=== PATIENT | female | born 1935 | race Caucasian/White ===

== ENCOUNTER 2017-07-14 13:33 | Inpatient (IN) | payer OTHER, MEDICARE ==
[~2017-07-14] VITALS: Ht 149.9 cm; Wt 98.2 kg
[2017-07-14 01:01] VITALS: BP 111/55
[2017-07-14 15:09] LABS: HEMATOCRIT 41.4 % (36.0-46.0); MCH 31.7 PG (29.0-34.0); MCV 90.6 FL (83-99); MEAN PLAT.VOLUME 11.7 uM^3 (9.5-12.4); PLATELET COUNT 160 K/uL (156-360); RED BLOOD COUNT 4.57 M/uL (3.80-5.20); WHITE BLOOD COUNT 7.1 K/uL (4.1-10.2)
[2017-07-14 15:16] LABS: CHLORIDE 98 mEq/L (99-109); POTASSIUM 4.7 mEq/L (3.7-5.4); SODIUM 129 mEq/L (136-147)
[2017-07-14 15:18] LABS: GLUCOSE 148 mg/dL (70-99)
[2017-07-14 15:20] LABS: ANION GAP 13 MEQ/L (2-14)
[2017-07-14 15:22] LABS: GFR ESTIMATE (CALCULATED) 33 mL/min/
[2017-07-14 15:23] LABS: UREA NITROGEN (BUN) 64 mg/dL (9-23)
[2017-07-14 15:29] LABS: TROP-I INTERPRETATION NEGATIVE; TROPONIN-I 0.03 ng/mL (0.0-0.30)
[2017-07-14] MEDS ORDERED: FUROSEMIDE20 MG PO (16:35)
[2017-07-14] MEDS ORDERED: NORCO 5/3251 TABLET PO (16:36)
[2017-07-14] MEDS ORDERED: ZOFRAN4 MG PO (16:36)
[2017-07-14] MEDS ORDERED: SSD25GM TP (16:36)
[2017-07-14] MEDS ORDERED: ULORIC40 MG PO (16:37)
[2017-07-14] MEDS ORDERED: ZOCOR40 MG PO (16:37)
[2017-07-14] MEDS ORDERED: VOLTAREN-XR100 MG PO (16:37)
[2017-07-14] MEDS ORDERED: PRINIVIL5 MG PO (16:37)
[2017-07-14] MEDS ORDERED: ASMANEX TW200 MICRO1 IH (16:38)
[2017-07-14] MEDS ORDERED: ALDACTONE25 MG PO (16:38)
[2017-07-14] MEDS ORDERED: VENTOLIN HFA18 GM IH (16:38)
[2017-07-14] MEDS ORDERED: CORTIZONE-1057 GM TP (16:39)
[2017-07-14 16:50] LABS: INTER. NORMALIZED RATIO 1.1; PROTHROMBIN TIME 12.6 SEC (10.2-12.9)
[2017-07-14 16:53] LABS: PTT 27.9 SEC (25-37)
[2017-07-14 18:15] LABS: CHLORIDE 101 mEq/L (99-109); POTASSIUM 4.1 mEq/L (3.7-5.4); SODIUM 128 mEq/L (136-147)
[2017-07-14 18:16] LABS: GLUCOSE 135 mg/dL (70-99)
[2017-07-14 18:18] LABS: ANION GAP 13 MEQ/L (2-14)
[2017-07-14 18:20] LABS: GFR ESTIMATE (CALCULATED) 38 mL/min/
[2017-07-14 18:21] LABS: UREA NITROGEN (BUN) 63 mg/dL (9-23)
[2017-07-14 18:25] LABS: TROP-I INTERPRETATION NEGATIVE; TROPONIN-I 0.06 ng/mL (0.0-0.30)
[2017-07-14 19:36] LABS: ADD MIUA? YES; BILIRUBIN NEGATIVE; BLOOD NEGATIVE; COLOR AMBER ((YELLOW)); GLUCOSE (STRIP) 50; KETONES 5; LEUKOCYTES LARGE; NITRITE NEGATIVE; PROTEIN (STRIP) 30; SPECIFIC GRAVITY 1.024 (1.000-1.030); UROBILINOGEN 0.2 MG/DL (0.2-1.0)
[2017-07-14 19:55] VITALS: BP 93/61
[2017-07-14 20:00] VITALS: BP 100/60
[2017-07-14 20:04] LABS: BACTERIA 3+ /HPF; CASTS PRESENT /LPF; CRYSTALS NONE SEEN; EPITHELIAL CELLS 3+ /HPF; MUCUS NONE SEEN /LPF; RED BLOOD CELLS 0-5 /HPF (0-5); UCUL ADDED? YES; WHITE BLOOD CELLS TNTC /HPF (0-5)
[2017-07-14 20:05] LABS: HYALINE CASTS 0-5 /LPF
[2017-07-14 22:17] LABS: TROP-I INTERPRETATION NEGATIVE; TROPONIN-I 0.08 ng/mL (0.0-0.30)
[2017-07-15] VITALS (7 sets, daily range): BP systolic 88–134; BP diastolic 54–91
[2017-07-15 05:27] LABS: HEMATOCRIT 41.6 % (36.0-46.0); MCH 30.6 PG (29.0-34.0); MCHC 33.7 G/DL (30.0-36.0); NRBC (%) 0.2 /100 WBC (0-0); PLATELET COUNT 160 K/uL (156-360); RBC DIS.WIDTH-CV 13.1 % (11.8-14.6); RED BLOOD COUNT 4.57 M/uL (3.80-5.20); WHITE BLOOD COUNT 8.2 K/uL (4.1-10.2)
[2017-07-15 05:55] LABS: ALKALINE PHOSPHATASE 102 IU/L (3-129); ANION GAP 8 MEQ/L (2-14); CHLORIDE 100 MEQ/L (99-109); GFR ESTIMATE (CALCULATED) 45 mL/min/; GLUCOSE 110 mg/dL (70-99); POTASSIUM 4.3 MEQ/L (3.7-5.4); SAMPLE HEMOLYSIS CHECK 0; SAMPLE ICTERIC CHECK 0; SAMPLE LIPEMIA CHECK 0; SODIUM 128 MEQ/L (136-147); TOTAL BILIRUBIN 0.9 MG/DL (0.0-1.0); UREA NITROGEN (BUN) 56 mg/dL (9-23)
[2017-07-15 06:02] LABS: ABS NEUTROPHIL COUNT 5.3; ANISOCYTOSIS 1+; ATYPICAL LYMPHOCYTE 2.6 %; BAND NEUTROPHILS 6.9 % (0-8.0); BASOPHILS 0.9 %; EOSINOPHIL ABS CT 0; INSTRUMENT ABS NEUTROPHIL CT 5.4 K/uL; LYMPHOCYTES 12.2 % (15.0-45.0); PLAT.SUFFICIENCY ADEQUATE; SEG.NEUTROPHILS 57.4 % (46.0-76.0)
[2017-07-15 06:22] LABS: HDL CHOLESTEROL 24 MG/DL (Desirable>=50); LDL CHOLESTEROL 26 mg/dL (Desirable<100); NON-HDL CHOLESTEROL 45 mg/dL (Desirable<160); TOTAL CHOLESTEROL 69 mg/dL (Desirable<200); TRIGLYCERIDES 97 MG/DL (Normal: <150)
[2017-07-15 07:05] LABS: Estimated Average Glucose 134 mg/dL (70-123); HEMOGLOBIN A1c (GLYCOHEMOGLOB) 6.3 % HGB (Below 5.7)
[2017-07-15 21:29] LABS: C DIFF TOXIN NEGATIVE (NEGATIVE)
[2017-07-15 21:43] LABS: PROBE CHECK PASS; SPECIMEN PROCESSING CONTROL PASS
[2017-07-16] VITALS (7 sets, daily range): BP systolic 11–131; BP diastolic 52–66
[2017-07-16 10:15] LABS: ALKALINE PHOSPHATASE 104 IU/L (3-129); ANION GAP 9 MEQ/L (2-14); CHLORIDE 102 MEQ/L (99-109); GFR ESTIMATE (CALCULATED) > 59 mL/min/; GLUCOSE 104 mg/dL (70-99); POTASSIUM 4.1 MEQ/L (3.7-5.4); SAMPLE HEMOLYSIS CHECK 0; SAMPLE ICTERIC CHECK 0; SAMPLE LIPEMIA CHECK 0; SODIUM 133 MEQ/L (136-147); UREA NITROGEN (BUN) 40 mg/dL (9-23)
[2017-07-16 10:29] LABS: TOTAL BILIRUBIN 0.7 MG/DL (0.0-1.0)
[2017-07-17] VITALS (8 sets, daily range): BP systolic 110–120; BP diastolic 56–78
[2017-07-17 04:43] LABS: HEMATOCRIT 34.8 % (36.0-46.0); MCH 31.8 PG (29.0-34.0); MCHC 35.1 G/DL (30.0-36.0); MCV 90.6 FL (83-99); MEAN PLAT.VOLUME 12.7 uM^3 (9.5-12.4); PLATELET COUNT 144 K/uL (156-360); RBC DIS.WIDTH-CV 13.3 % (11.8-14.6); RBC DIS.WIDTH-SD 43.7 % (39-53); RED BLOOD COUNT 3.84 M/uL (3.80-5.20); WHITE BLOOD COUNT 8.7 K/uL (4.1-10.2)
[2017-07-17 04:53] LABS: CHLORIDE 104 mEq/L (99-109); POTASSIUM 4.2 mEq/L (3.7-5.4); SODIUM 134 mEq/L (136-147)
[2017-07-17 04:55] LABS: GLUCOSE 106 mg/dL (70-99)
[2017-07-17 04:56] LABS: ANION GAP 10 MEQ/L (2-14)
[2017-07-17 04:57] LABS: TOTAL BILIRUBIN 0.5 mg/dL (0.0-1.0)
[2017-07-17 04:58] LABS: ALKALINE PHOSPHATASE 100 IU/L (3-129)
[2017-07-17 04:59] LABS: GFR ESTIMATE (CALCULATED) > 59 mL/min/
[2017-07-17 05:00] LABS: UREA NITROGEN (BUN) 27 mg/dL (9-23)
[2017-07-17 05:45] LABS: ABS NEUTROPHIL COUNT 5.5; ATYPICAL LYMPHOCYTE 7.1 %; BAND NEUTROPHILS 1.8 % (0-8.0); EOSINOPHIL ABS CT 0; INSTRUMENT ABS NEUTROPHIL CT 5.5 K/uL; METAMYELOCYTES 1.8 %; MYELOCYTES 1.8 %; NUCLEATED RBC'S 0.9; PLAT.SUFFICIENCY DECREASED; SEG.NEUTROPHILS 61.9 % (46.0-76.0)
[2017-07-18 04:15] VITALS: BP 108/71
[2017-07-18 06:00] LABS: ALKALINE PHOSPHATASE 90 IU/L (3-129); ANION GAP 6 MEQ/L (2-14); CHLORIDE 100 MEQ/L (99-109); GFR ESTIMATE (CALCULATED) > 59 mL/min/; GLUCOSE 117 mg/dL (70-99); POTASSIUM 4.4 MEQ/L (3.7-5.4); SAMPLE HEMOLYSIS CHECK 0; SAMPLE ICTERIC CHECK 0; SAMPLE LIPEMIA CHECK 0; SODIUM 132 MEQ/L (136-147); UREA NITROGEN (BUN) 29 mg/dL (9-23)
[2017-07-18 06:01] LABS: TOTAL BILIRUBIN 0.4 MG/DL (0.0-1.0)
[2017-07-18 08:17] VITALS: BP 118/58
[2017-07-18] MEDS ORDERED: ELIQUIS5 MG PO (11:38)
[2017-07-18] MEDS ORDERED: FAMOTIDINE20 MG PO (11:39)
[2017-07-18] MEDS ORDERED: CEFTIN250 MG PO (11:40)
[2017-07-18] MEDS ORDERED: ACIDOPHILUS1 EAC4 PO (11:40)
[2017-07-18] MEDS ORDERED: NORCO 5/3251 TABLET PO (11:41)
[2017-07-18 12:00] VITALS: BP 110/61
[2017-07-18] MEDS ORDERED: DIGOXIN125 MCG PO (12:03)
[2017-07-18 13:25] VITALS: BP 103/57
[2017-07-18 16:30] VITALS: BP 103/53
[2017-07-18 19:20] VITALS: BP 113/65
[2017-07-19 00:10] VITALS: BP 127/51
[2017-07-19 06:15] VITALS: BP 108/55
[2017-07-19 06:46] LABS: HEMATOCRIT 34.8 % (36.0-46.0); MCH 31.6 PG (29.0-34.0); MCHC 33.6 G/DL (30.0-36.0); MCV 94.1 FL (83-99); MEAN PLAT.VOLUME 12.4 uM^3 (9.5-12.4); NRBC (%) 0.3 /100 WBC (0-0); RBC DIS.WIDTH-SD 46.4 % (39-53); WHITE BLOOD COUNT 9.4 K/uL (4.1-10.2)
[2017-07-19 07:25] LABS: ABS NEUTROPHIL COUNT 8.1; ANISOCYTOSIS 1+; ATYPICAL LYMPHOCYTE 0.9 %; BAND NEUTROPHILS 4.4 % (0-8.0); EOSINOPHIL ABS CT 0; INSTRUMENT ABS NEUTROPHIL CT 7.4 K/uL; METAMYELOCYTES 1.7 %; MYELOCYTES 1.7 %; PLAT.SUFFICIENCY ADEQUATE; SEG.NEUTROPHILS 81.7 % (46.0-76.0)
[2017-07-19 07:32] LABS: PLATELET COUNT 191 K/uL (156-360)
[2017-07-19 08:01] VITALS: BP 139/65
[2017-07-19 12:02] VITALS: BP 132/67
[2017-07-19] MEDS ORDERED: METOPROLOL TART50 MG PO (14:35)
[2017-07-19 15:21] VITALS: BP 123/59
== END 2017-07-19 17:37 | DRG 309 ==
LOC: EME 13:33 → EDOF 15:49 → 4EAST 15:49 → ENRESERV 15:50 → EDOF 16:03 → ENRESERV 16:20 → 4EAST 19:31
PROVIDERS: Emergency Medicine; Family Medicine; Hospitalist
DX: I48.91 Unspecified atrial fibrillation (principal); N17.9 Acute kidney failure, unspecified; E87.1 Hypo-osmolality and hyponatremia; N39.0 Urinary tract infection, site not specified; Z68.41 Body mass index [BMI] 40.0-44.9, adult; R73.02 Impaired glucose tolerance (oral); E86.0 Dehydration; J45.909 Unspecified asthma, uncomplicated; R94.5 Abnormal results of liver function studies; I11.0 Hypertensive heart disease with heart failure; I50.9 Heart failure, unspecified; B96.20 Unspecified Escherichia coli [E. coli] as the cause of diseases classified elsewhere; I27.20 Pulmonary hypertension, unspecified; I87.2 Venous insufficiency (chronic) (peripheral); Z16.11 Resistance to penicillins; Z16.24 Resistance to multiple antibiotics; E66.9 Obesity, unspecified; Z79.899 Other long term (current) drug therapy; E78.5 Hyperlipidemia, unspecified; G89.29 Other chronic pain
CPT/HCPCS: 70551; 71010; 76705; 76770; 80048; 80048 91; 80053; 80061; 81003; 83036; 83605; 84484; 84550; 85025; 85027; 85610; 85730; 87077; 87086; 87186; 87493; 90686; 93005; 93306; 97530 GP; 99202; 99281; 99285; J0696; J2405; J7030; J7040; J7050; J7512; S0028

== ENCOUNTER 2018-05-13 20:22 | Observation (INO) | payer OTHER, MEDICARE ==
[~2018-05-13] VITALS: Ht 165.1 cm; Wt 105.4 kg
[~2018-05-13 20:22] MED LIST: ACIDOPHILUS1 EAC4 PO; ALDACTONE25 MG PO; ASMANEX TW200 MICRO1 IH; CEFTIN250 MG PO; CORTIZONE-1057 GM TP; DIGOXIN125 MCG PO; ELIQUIS5 MG PO; FAMOTIDINE20 MG PO; FUROSEMIDE20 MG PO; METOPROLOL TART50 MG PO; NORCO 5/3251 TABLET PO; PRINIVIL5 MG PO; SSD25GM TP; ULORIC40 MG PO; VENTOLIN HFA18 GM IH; VOLTAREN-XR100 MG PO; ZOCOR40 MG PO; ZOFRAN4 MG PO
[2018-05-13 21:30] LABS: HEMATOCRIT 43.6 % (36.0-46.0); HEMOGLOBIN 14.6 G/DL (11.9-15.5); MCH 30.2 PG (29.0-34.0); MCHC 33.5 G/DL (30.0-36.0); MCV 90.3 FL (83-99); PLATELET COUNT 149 K/uL (156-360); RBC DIS.WIDTH-CV 13.4 % (11.8-14.6); RBC DIS.WIDTH-SD 44.5 % (39-53); RED BLOOD COUNT 4.83 M/uL (3.80-5.20); WHITE BLOOD COUNT 11.7 K/uL (4.1-10.2)
[2018-05-13 21:50] LABS: TROP-I INTERPRETATION NEGATIVE; TROPONIN-I < 0.01 ng/mL (0.0-0.30)
[2018-05-13 21:53] LABS: CHLORIDE 103 mEq/L (99-109); POTASSIUM 3.6 mEq/L (3.7-5.4); SODIUM 142 mEq/L (136-147)
[2018-05-13 21:54] LABS: GLUCOSE 153 mg/dL (70-99)
[2018-05-13 21:58] LABS: GFR ESTIMATE (CALCULATED) 56 mL/min/
[2018-05-13 21:59] LABS: UREA NITROGEN (BUN) 23 mg/dL (9-23)
[2018-05-14 01:06] VITALS: BP 140/65
[2018-05-14 03:51] VITALS: BP 127/66
[2018-05-14 03:51] LABS: TROP-I INTERPRETATION NEGATIVE; TROPONIN-I < 0.01 ng/mL (0.0-0.30)
[2018-05-14 08:13] VITALS: BP 123/59
[2018-05-14 09:23] LABS: HEMATOCRIT 43.8 % (36.0-46.0); HEMOGLOBIN 14.5 G/DL (11.9-15.5); MCH 30.3 PG (29.0-34.0); MCHC 33.1 G/DL (30.0-36.0); MCV 91.4 FL (83-99); PLATELET COUNT 149 K/uL (156-360); RBC DIS.WIDTH-CV 13.4 % (11.8-14.6); RBC DIS.WIDTH-SD 45.9 % (39-53); RED BLOOD COUNT 4.79 M/uL (3.80-5.20); WHITE BLOOD COUNT 11.2 K/uL (4.1-10.2)
[2018-05-14 10:20] LABS: TROP-I INTERPRETATION NEGATIVE; TROPONIN-I < 0.01 ng/mL (0.0-0.30)
[2018-05-14] MEDS ORDERED: ROBITUSSIN DM118 ML PO (11:41)
[2018-05-14] MEDS ORDERED: ASPIR-LOW81 MG PO (11:41)
[2018-05-14] MEDS ORDERED: BENZONATATE100 MG PO (11:41)
[2018-05-14] MEDS ORDERED: VENTOLIN HFA18 GM IH (11:41)
[2018-05-14] MEDS ORDERED: BREO ELLIPTA I1 EACH IH (12:09)
[2018-05-14] MEDS ORDERED: LASIX20 MG PO (12:11)
[2018-05-14] MEDS ORDERED: LEVOXYL25 MCG PO (12:12)
[2018-05-14] MEDS ORDERED: LOPRESSOR25 MG PO (12:13)
[2018-05-14] MEDS ORDERED: K-DUR20 MEQ PO (12:14)
[2018-05-14] MEDS ORDERED: CLOTRIMAZOLE15 GM TP (12:18)
[2018-05-14] MEDS ORDERED: TYLENOL REGULA325 MG PO (12:19)
[2018-05-14] MEDS ORDERED: MILK OF MAGN PO (12:20)
[2018-05-14] MEDS ORDERED: ROBAFEN CF SYR118 M1 PO (12:21)
== END 2018-05-14 13:59 | disposition home or self-care (01) ==
LOC: EME → EDBD 20:22 → EDOF 05-14 00:02 → 4SOUTH 05-14 00:02 → EDOF 05-14 00:02 → 4SOUTH 05-14 00:45
PROVIDERS: Physician Assistant
DX: R07.2 Precordial pain (principal); I50.9 Heart failure, unspecified; E78.5 Hyperlipidemia, unspecified; E11.9 Type 2 diabetes mellitus without complications; I11.0 Hypertensive heart disease with heart failure; J44.9 Chronic obstructive pulmonary disease, unspecified; M10.9 Gout, unspecified; Z87.891 Personal history of nicotine dependence; E66.9 Obesity, unspecified; E78.00 Pure hypercholesterolemia, unspecified; G89.29 Other chronic pain; E03.9 Hypothyroidism, unspecified; F03.90 Unspecified dementia, unspecified severity, without behavioral disturbance, psychotic disturbance, mood disturbance, and anxiety; M54.9 Dorsalgia, unspecified; Z66 Do not resuscitate; I48.0 Paroxysmal atrial fibrillation; I47.1 Supraventricular tachycardia; Z79.01 Long term (current) use of anticoagulants
CPT/HCPCS: 71046; 80048; 84484; 85027; 93005; 94640; 99281; 99285; G0378